=== PATIENT | male | born 1950 | race Caucasian/White ===

== ENCOUNTER 2021-08-12 09:29 | Emergency (ER) | payer MEDICARE ==
[2021-08-12 10:06] LABS: BASOPHIL 0.5 % (0-2); EOSINOPHIL 2.1 % (0-7); HCT 51.4 % (42.0-52.0); HGB 17.7 g/dl (13.2-18.0); LYMPHOCYTE 28.1 % (15-48); MCH 31.2 pg (25.0-31.0); MCHC 34.4 g/dL (32.0-36.0); MCV 90.5 fL (78.0-100.0); MONOCYTE 11.2 % (0-12); MPV 9.6 fL (6.0-9.5); NEUTROPHIL 57.8 % (41-80); NRBC 0; PLT 207 K/uL (150-400); RBC 5.68 M/uL (4.70-6.00); RDW 13.3 % (11.5-14.0); WBC 6.3 K/uL (4.0-10.5)
[2021-08-12 11:01] LABS: ALBUMIN 4.4 g/dL (3.4-5.0); BILIRUBIN - TOTAL 1.5 mg/dL (0.2-1.0); BUN/CREAT RATIO (CALC) 15.5 RATIO; CREATININE 1.16 mg/dL (0.67-1.17); GLOBULIN (CALCULATION) 4.3 g/dL; POTASSIUM 3.9 mmol/L (3.5-5.1); TOTAL PROTEIN 8.7 g/dL (6.4-8.2)
[2021-08-12 11:15] LABS: LACTIC ACID 1.9 mmol/L (0.4-1.9)
[2021-08-12 11:58] LABS: BILIRUBIN NEGATIVE (NEGATIVE); BLOOD NEGATIVE Ery/uL (NEGATIVE); CLARITY CLOUDY (CLEAR); COLOR YELLOW (YELLOW); GLUCOSE (U) NORMAL (NORMAL); LEUKOCYTES NEGATIVE Leu/uL (NEGATIVE); NITRITE NEGATIVE (NEGATIVE); PROTEIN TRACE (LOW) mg/dL (NEGATIVE); SPECIFIC GRAVITY 1.025 (1.001-1.030); UROBILINOGEN 0.2 mg/dL (0.2-1.0)
[2021-08-12 12:06] LABS: URINARY WBC RARE
[2021-08-12 12:07] LABS: AMORPHOUS PHOSPHATE CRYSTALS LARGE; BACTERIA TRACE; SQUAMOUS EPITHELIAL CELLS RARE; URIC ACID CRYSTALS LARGE
[2021-08-12] MEDS ORDERED: FLOMAX 0.4 MG0.4 MG PO ×2 (12:37)
[2021-08-12] MEDS ORDERED: NORCO 5/3251 EACH PO (12:37)
[2021-08-12] MEDS ORDERED: KETOROLAC TROME10 MG PO (12:37)
== END 2021-08-12 12:54 | disposition home or self-care (01) ==
LOC: FER 09:29
PROVIDERS: Emergency Medicine
DX: N13.2 Hydronephrosis with renal and ureteral calculous obstruction (principal); Z28.310 Unvaccinated for COVID-19
CPT/HCPCS: 36415; 80053; 81001; 83605; 84550; 85025; 87040; J1885; J2270; J2405; Q9967